=== PATIENT | female | born 1965 | race African-American/Black ===

== ENCOUNTER 2022-03-27 11:16 | Outpatient (CLI) | payer OTHER ==
[2022-03-27 12:15] LABS: Mean Corpuscular HGB CONC 32.3 g/dL (32.0-36.0); Mean Corpuscular Hemoglobin 29.6 pg (27.0-33.0); Mean Corpuscular Volume 91.6 fl (81.6-98.3); Mean Platelet Volume 8.8 fl (7.4-10.4); Platelet Count 353 10x3/uL (150-450); RBC Distribution Width 13.7 % (11.5-14.5); Red Blood Cell (RBC) Count 4.05 10x6/uL (3.90-5.03); White Blood Cell (WBC) Count 6.9 10x3/uL (3.5-10.5)
[2022-03-27 12:32] LABS: Anion Gap 12 mmol/L (10-20); BUN (Urea Nitrogen) 10 mg/dL (9.8-20.1); Calc. Creatinine Clearance 0 mL/min (70-130); Calcium 9.1 mg/dL (7.8-10.44); Carbon Dioxide 27 mmol/L (22-29); Chloride 106 mmol/L (98-107); Estimated GFR 83; Glucose 102 mg/dL (70-105); Potassium 4.6 mmol/L (3.5-5.1); Sodium 140 mmol/L (136-145)
== END 2022-03-27 11:17 | disposition home or self-care (01) ==
LOC: CSHLAB 11:16
PROVIDERS: ATTEND Podiatrist Foot & Ankle Surgery
DX: Z01.818 Encounter for other preprocedural examination (principal); Z20.822 Contact with and (suspected) exposure to COVID-19; M21.612 Bunion of left foot
CPT/HCPCS: 80048; 85027; 87811; 93005; 93010

== ENCOUNTER 2022-03-30 06:47 | Day surgery (SDC) | payer OTHER ==
[2022-03-29 09:42] VITALS: BMI 31.2
[2022-03-30] MEDS ORDERED: Bupivacaine PF 0.5% 30 ML VIAL ONE (07:04)
[2022-03-30] MEDS ORDERED: Neomycin-Polymyxin 1 ML AMP ONE (07:04)
[2022-03-30] MEDS ORDERED: Lidocaine 1% MPF 2 ML VIAL ONE (07:12)
[2022-03-30] MEDS ORDERED: CEFAZOLIN 2 GM VIAL ONE (08:44)
[2022-03-30] MEDS ORDERED: Dexamethasone 4 mg/ml Vial ONE (08:52)
[2022-03-30] MEDS ORDERED: Ketorolac Tromethamine 30 MG/ML VIAL ONE (08:52)
[2022-03-30] MEDS ORDERED: Fentanyl 100 MCG/2 ML VIAL ONE ×2 (08:52→11:48)
[2022-03-30] MEDS ORDERED: Lidocaine 1% PF 5 ML VIAL ONE (08:52)
[2022-03-30] MEDS ORDERED: Ondansetron PF 4 MG/2 ML Vial ONE (08:52)
[2022-03-30] MEDS ORDERED: Midazolam HCl 2 mg/2 ml Vial ONE (08:53)
[2022-03-30] MEDS ORDERED: Ropivacaine 0.2% 550 ML 550 ML NERVE BLCK SCH (09:15)
[2022-03-30] MEDS ORDERED: Zolpidem Tartrate 5 MG TAB PO PRN (09:15)
[2022-03-30] MEDS ORDERED: Promethazine HCl 25 MG/ML VIAL IM PRN (09:15)
[2022-03-30] MEDS ORDERED: Ondansetron PF 4 MG/2 ML Vial IVP PRN (09:15)
[2022-03-30] MEDS ORDERED: ePHEDrine Sulfate 50 MG/10 ML VIAL ONE (09:50)
[2022-03-30] MEDS ORDERED: hydrALAZINE 20 MG/ML VIAL ONE (11:58)
== END 2022-03-30 12:55 | disposition home or self-care (01) ==
LOC: CSHSDC 06:47
PROVIDERS: ATTEND Podiatrist Foot & Ankle Surgery
PROC: 0QSP04Z Reposition Left Metatarsal with Internal Fixation Device, Open Approach (ICD-10-PCS; principal; 2022-03-30)
PROC: 0QSR04Z Reposition Left Toe Phalanx with Internal Fixation Device, Open Approach (ICD-10-PCS; principal; 2022-03-30)
PROC: 0QBP0ZZ Excision of Left Metatarsal, Open Approach (ICD-10-PCS; principal; 2022-03-30)
DX: M20.12 Hallux valgus (acquired), left foot (principal); M25.375 Other instability, left foot; M25.572 Pain in left ankle and joints of left foot
CPT/HCPCS: A4306; C1713; C1769; C1776; J0360; J0690; J1100; J1885; J2250; J2405; J2795; J3010; S0020